=== PATIENT | female | born 1935 | race Caucasian/White ===

== ENCOUNTER 2022-03-09 10:29 | Inpatient (IN) ==
[2022-03-09] MEDS ORDERED: IOPAMIDOL 100 ML BOTTLE IV ONE (10:30)
[2022-03-09] MEDS ORDERED: 0.9 % SODIUM CHLORIDE 1,000 ML IV ONE (10:42)
[2022-03-09] MEDS ORDERED: ONDANSETRON 4 MG/2 ML VIAL IV ONE (10:50)
[2022-03-09] MEDS ORDERED: morphine 4 MG/ML VIAL IV ONE (10:50)
--- NOTE | 2022-03-09 10:52 | Emergency Department Note ---
HPI General Chief complaint: Abdominal Pain Stated complaint: stomach pain Time Seen by Provider: 03/09/22 10:50 Source: patient and family Mode of arrival: wheelchair Limitations: no limitations History of Present Illness HPI Narrative: Narrative: Patient is an 86-year-old female with a history of dementia, but without otherwise known history who presents to the emergency department due to abdominal pain. The patient states that she has pain in her entire abdomen, but it is worst in the right lower portion of the abdomen. She states that the pain is very severe, and is having difficulty answering other questions at this time. Patient's states that the pain started this morning while at [employer]. 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 He states that she has tenderness at McBurney's point. Patient's daughter states that she has had multiple emergency department visits in the past for abdominal pain, but nothing had been found in the past. They deny any other known concerns at this time. Related Data Allergies Allergy/AdvReac Type Severity Reaction Status Date / Time No Known Drug Allergies Allergy Unverified 03/09/22 10:45 Review of Systems ROS ROS Narrative: Narrative: Limitations: ROS unobtainable due to patients medical condition [facility] Narrative Patient History Narrative: Narrative: Medical/Surgical/Family History All Active Problems (Updated 03/09/22 @ 19:04 by Edmund Grant MD) Pneumoperitoneum (Acute) Acute generalized peritonitis (Acute) Perforated abdominal viscus (Acute) Medical History (Updated 03/09/22 @ 19:04 by Edmund Grant MD) Degenerative disc disease Loose total arthroplasty of both knees Osteoarthritis Surgical History (Updated 03/09/22 @ 15:11 by Micky Johnson MD) History of arthroplasty of right shoulder History of total right hip arthroplasty Social History Smoking Status: Never smoker Exam Narrative Narrative: Narrative: General Limitations: no limitations General appearance: Present alert and in no apparent distress; Absent anxious or appears intoxicated Head Head: Present atraumatic and normocephalic Eye Eye: Present PERRL, EOMI and visual bowles intact; Absent scleral icterus or nystagmus ENT ENT: Present mucous membranes moist; Absent nasal congestion Neck Neck: Present full ROM; Absent tenderness Chest Chest: Present normal inspection, symmetric chest wall rise and tenderness Respiratory Respiratory: Present normal lung sounds bilaterally; Absent respiratory distress or accessory muscle use Cardiovascular Cardiovascular: Present regular rate, normal rhythm and normal heart sounds Adbominal Abdominal: Present soft and normal bowel sounds; Absent distention or tenderness Extremities Extremities: Present normal inspection and full ROM; Absent tenderness Back Back: Present normal inspection and full ROM; Absent tenderness Neurological Neurological: Present alert, oriented X3, CN II-XII intact, normal gait and reflexes normal; Absent motor sensory deficit Psychiatric Psychiatric: Present normal affect and normal mood Skin Skin: Present warm (WNL), dry and normal color Course Vital Signs Vital signs: Vital Signs Temperature 99.1 F H 03/09/22 10:36 Pulse Rate 123 H 03/09/22 10:36 Respiratory Rate 22 03/09/22 10:36 Blood Pressure 183/120 03/09/22 10:36 Pulse Oximetry (%) 98 03/09/22 10:36 Oxygen Delivery Method 03/09/22 10:36 Temperature 97.8 F 03/09/22 18:38 Pulse Rate 88 03/09/22 18:38 Respiratory Rate 18 03/09/22 18:38 Blood Pressure 115/66 03/09/22 18:35 Pulse Oximetry (%) 95 03/09/22 18:38 Oxygen Delivery Method 03/09/22 14:47 Oxygen Flow Rate (L/min) 0 03/09/22 18:38 MDM MDM Narrative Medical decision making narrative: Narrative: Patient is an 86-year-old female with a history of dementia, but without otherwise known history who presents to the emergency department due to abdominal pain. Differential diagnoses include pancreatitis, small bowel obstruction, appendicitis, urinary tract infection, gastritis, and peptic ulcer disease. Patient's labs are reassuring. CT scan is significant for pneumoperitoneum. I have spoken to Dr. Johnson who has agreed to see and evaluate patient for surgical exploration. Lab Data Result diagrams: 03/09/22 10:57 Labs: Lab Results 03/09/22 03/09/22 03/09/22 Range/Units 10:51 10:51 10:57 WBC 11.0 (4.5-11.0) K/mcL RBC 3.77 (3.59-5.38) M/mcL Hgb 11.9 (11.2-15.7) g/dL Hct 35.4 (34.1-44.9) % POC Hct (36-48) MCV 93.9 (80.0-100.0) fL MCH 31.6 (26.0-34.0) pg MCHC 33.6 (31.0-36.0) g/dL RDW 13.9 (11.5-14.5) % Plt Count 403 (140-440) K/mcL MPV 10.0 (7.4-10.4) fL Immature Gran % (Auto) 0.5 (0.0-0.5) % Neut % (Auto) 70.5 (38.0-78.0) % Lymph % (Auto) 19.9 (15.5-49.0) % [place] % (Auto) 7.9 (1.0-12.0) % Eos % (Auto) 0.9 (0.0-7.0) % Baso % (Auto) 0.3 (0.0-2.0) % Lymph # (Auto) 2.19 (1.50-4.80) K/mcL [place] # (Auto) 0.87 (0.10-0.90) K/mcL Eos # (Auto) 0.10 (0.00-0.70) K/mcL Baso # (Auto) 0.03 (0.00-0.30) K/mcL Immature Gran # 0.05 (0.00-0.05) K/mcl Absolute Neutrophils 7.77 (1.80-8.00) K/mcL PT 12.7 (11.9-14.5) sec INR 0.9 (0.9-1.1) APTT 27.5 (20.0-37.0) sec POC Sodium (133-145) POC Potassium (3.3-5.1) POC Chloride (96-108) POC Total CO2 (22-30) POC BUN (6-20) POC Creatinine (0.6-1.2) POC Glucose (70-105) POC WB Ioniz Calcium (1.16-1.32) Total Bilirubin 0.5 (0.1-1.0) mg/dL Direct Bilirubin < 0.2 (0-0.3) mg/dL AST 20 (<32) U/L ALT 18 (<40) U/L Alkaline Phosphatase 111 (39-117) U/L Total Protein 6.4 (5.9-8.4) gm/dL Albumin 3.8 (3.2-5.2) gm/dL Globulin 2.6 (2.2-3.7) gm/dL Lipase 48 (7-60) U/L 03/09/22 Range/Units 12:18 WBC (4.5-11.0) K/mcL RBC (3.59-5.38) M/mcL Hgb (11.2-15.7) g/dL Hct (34.1-44.9) % POC Hct 30.0 L (36-48) MCV (80.0-100.0) fL MCH (26.0-34.0) pg MCHC (31.0-36.0) g/dL RDW (11.5-14.5) % Plt Count (140-440) K/mcL MPV (7.4-10.4) fL Immature Gran % (Auto) (0.0-0.5) % Neut % (Auto) (38.0-78.0) % Lymph % (Auto) (15.5-49.0) % [place] % (Auto) (1.0-12.0) % Eos % (Auto) (0.0-7.0) % Baso % (Auto) (0.0-2.0) % Lymph # (Auto) (1.50-4.80) K/mcL [place] # (Auto) (0.10-0.90) K/mcL Eos # (Auto) (0.00-0.70) K/mcL Baso # (Auto) (0.00-0.30) K/mcL Immature Gran # (0.00-0.05) K/mcl Absolute Neutrophils (1.80-8.00) K/mcL PT (11.9-14.5) sec INR (0.9-1.1) APTT (20.0-37.0) sec POC Sodium 139 (133-145) POC Potassium 3.5 (3.3-5.1) POC Chloride 110 H (96-108) POC Total CO2 21.0 L (22-30) POC BUN 24 H (6-20) POC Creatinine 0.9 (0.6-1.2) POC Glucose 110 H (70-105) POC WB Ioniz Calcium 1.03 L (1.16-1.32) Total Bilirubin (0.1-1.0) mg/dL Direct Bilirubin (0-0.3) mg/dL AST (<32) U/L ALT (<40) U/L Alkaline Phosphatase (39-117) U/L Total Protein (5.9-8.4) gm/dL Albumin (3.2-5.2) gm/dL Globulin (2.2-3.7) gm/dL Lipase (7-60) U/L EKG Data EKG #1: EKG attestation: Yes I reviewed and interpreted this EKG. EKG results narrative: Sinus tachycardia with a rate of 109, equivocal axis, KS of 184, QRS of 82, QTc of 467, T wave flattening in lead III and aVL, and absence of ST elevation or depression. Discharge Plan Patient/Caregiver Discharge Instructions Pt seen by CLINICAL DATA MANAGEMENT MANAGER/PA only: No Clinical Impression: Pneumoperitoneum Patient Disposition: Xfer As Inpt ([facility]) Discharge Date/Time: 03/09/22 14:20 Discharge Comment: Dc'd to Med/Surg 112 @ [id number]
[2022-03-09 11:32] LABS: Basophils # (Auto) 0.03 K/mcL (0.00-0.30); Basophils % (Auto) 0.3 % (0.0-2.0); Eosinophils % (Auto) 0.9 % (0.0-7.0); Hematocrit 35.4 % (34.1-44.9); Hemoglobin 11.9 g/dL (11.2-15.7); Lymphocytes # (Auto) 2.19 K/mcL (1.50-4.80); Lymphocytes % (Auto) 19.9 % (15.5-49.0); Mean Cell Volume 93.9 fL (80.0-100.0); Mean Corpuscular HGB Conc 33.6 g/dL (31.0-36.0); Monocytes # (Auto) 0.87 K/mcL (0.10-0.90); Monocytes % (Auto) 7.9 % (1.0-12.0); Neutrophils % (Auto) 70.5 % (38.0-78.0); Platelet Count 403 K/mcL (140-440); RBC 3.77 M/mcL (3.59-5.38); Red Cell Distribution Width 13.9 % (11.5-14.5)
[2022-03-09] MEDS ORDERED: 0.9 % SODIUM CHLORIDE 500 ML IV ONE (11:37)
[2022-03-09] MEDS ORDERED: IPRATROPIUM/ALBUTEROL 3 ML AMPUL.NEB NEB ONE (11:41)
[2022-03-09 11:55] LABS: ALT/SGPT 18 U/L (<40); AST/SGOT 20 U/L (<32); Albumin 3.8 gm/dL (3.2-5.2); Alkaline Phosphatase 111 U/L (39-117); Bilirubin,Direct < 0.2 mg/dL (0-0.3); Bilirubin,Total 0.5 mg/dL (0.1-1.0); Globulin 2.6 gm/dL (2.2-3.7)
[2022-03-09] MEDS ORDERED: PIPERACILLIN SODIUM/TAZOBACTAM 3.375 GM in DEXTROSE 5% IN WATER 50 ML IV ONE (12:17)
[2022-03-09 12:22] LABS: POC Calcium, Ionized 1.03 (1.16-1.32); POC Creatinine 0.9 (0.6-1.2); POC Potassium 3.5 (3.3-5.1)
[2022-03-09 12:51] LABS: INR 0.9 (0.9-1.1); Partial Thromboplastin Time 27.5 sec (20.0-37.0); Prothrombin Time 12.7 sec (11.9-14.5)
[2022-03-09] MEDS: PANTOPRAZOLE 40 MG VIAL IV SCH ×2 (13:05→16:47)
--- NOTE | 2022-03-09 13:13 | XRay Report ---
CLINICAL INFORMATION: Preop COMPARISON: 02/19/2022 TECHNIQUE: Portable FINDINGS: Moderate hiatal hernia again noted. The heart is borderline enlarged. Mediastinum is unremarkable. There is mild distention of the pulmonary vasculature and mild interstitial edema both lungs. No infiltrates or effusions. Small amount of free air is noted under the right diaphragm. IMPRESSION: Mild CHF or volume overload. Small amount of free air under the right diaphragm suggesting GI tract rupture Severe right glenohumeral degeneration Interpreted and Authenticated by: Ethan Maravilla 03/09/22
--- NOTE | 2022-03-09 13:31 | Cat Scan Report ---
CLINICAL INFORMATION: Right lower quadrant pain COMPARISON: Abdomen and pelvic CT 12/20/2020 and 02/16/2022 TECHNIQUE: Following enteric contrast, 80 cc of Isovue-370 were injected intravenously, and 60 seconds later, 0.625 mm helical slices were obtained from the mid heart through the subtrochanteric regions. Following reconstruction, 2.5 mm sagittal, coronal and axial reformatted images were processed and reviewed at bone, lung and soft tissue windows. Five minutes later, 0.625 mm helical slices were obtained from the mid heart through the kidneys and viewed at soft tissue windows.The exam was performed using radiation dose optimization techniques including, but not limited to, automated exposure control, adjustment of the mA and/or kV according to patient size and use of iterative reconstruction technique. FINDINGS: The lung bases show subsegmental atelectasis. No effusions. The visualized heart is grossly normal in size. Heavy calcific plaque seen in the visualized coronary arteries. Moderate hiatal hernia is stable. Abdominal images show mild fatty change in the liver with a 6 mm cyst superior right hepatic lobe. No significant focal hepatic lesions. The gallbladder, intrahepatic and common bile ducts are all unremarkable. The CBD is 6 mm. The pancreas, both adrenal glands, spleen and aorta including aortic branches are normal in size, configuration and attenuation without focal lesion. There is a 8 mm nonobstructing stone within a inferior calyx of the left kidney. There is no obstructing stone. There is, however, mild left pyelocaliectasis may be due to mild congenital UPJ narrowing. Pelvic images show urinary bladder is unremarkable. Uterus and ovaries are not identified and may be surgically absent. The stomach, small large bowel are symmetrically dilated compatible with moderate ileus. Moderate free intraperitoneal fluid and air is seen in the upper abdomen. This suggests GI tract rupture-likely stomach or duodenum. Bone windows show moderate old T12 compression fracture which is stable. Grade 1 L3-4 spondylolisthesis due to degenerative facet disease noted is broad disc protrusion resulting in moderate central canal narrowing. IMPRESSION: 1. Moderate free intraperitoneal fluid and gas in the upper abdomen particularly the anterior perihepatic, para splenic and gastric region. This suggest GI tract rupture most commonly, in this location, due to peptic ulcer in the stomach or anterior duodenum. 2. Moderate ileus. 3. Moderate hiatal hernia stable 4. 8 mm nonobstructing stone inferior calyx left kidney. Mild pyelocaliectasis may be due to mild congenital UPJ narrowing. Interpreted and Authenticated by: Ethan Maravilla 03/09/22
[2022-03-09] MEDS: 0.9 % SODIUM CHLORIDE 1,000 ML IV SCH ×2 (13:32→18:37)
--- NOTE | 2022-03-09 15:06 | General Surg History&Physical ---
HPI History of Present Illness Patient information: Note initiated : 03/09/22 at 3:04 pm Service Date, if different from initiated Date: [] Patient: Heather Jasmine a 86 y/o F admitted on 03/09/22 for stomach pain. Chief Complaint: [] Chief complaint: Severe upper abdominal pain History of present illness: Ms. Jasmine is a 86 year old F with history of upper abdominal pain for at least 2weeks. She was seen in the emergency room and colon x2 in the past week without any abnormal findings. She had acute severe onset of pain 3 days ago. The pain became unbearable earlier today and she was seen in the emergency room. She appeared to be in severe distress but her vitals were stable except for tachycardia. CT of the abdomen shows large volume of free air primarily in the right upper quadrant in the subphrenic and subhepatic area. There is a small amount of air in the right subphrenic area. Patient gives a history of taking Celebrex daily over the past 10 years and she started taking Aleve when she had worsening pain. She denies nausea or vomiting. Her white blood count is 11 and her hemoglobin is 11.9. BUN is 24 with creatinine of 0.9. Review of Systems All systems: reviewed and no additional remarkable complaints except as stated Constitutional Constitutional: Present fatigue, malaise and weakness Respiratory Respiratory: Present cough Gastrointestinal Gastrointestinal: Present abdominal pain, change in bowel habits, change in stool character, constipation (Required Dulcolax suppositories), dyspepsia and nausea; Absent vomiting Musculoskeletal Musculoskeletal: Present abnormal gait, arthralgias, back pain and myalgias Psychiatric Psychiatric: Present behavioral changes and memory loss Hematologic/Lymphatic Hematologic/Lymphatic: Absent easy bleeding, easy bruising or lymphadenopathy Allergic/Immunologic Allergic/Immunologic: Absent tongue swelling, throat swelling, uticaria, wheezing or lip swelling PFSH PFSH All Active Problems (Updated 03/09/22 @ 15:15 by Micky Johnson MD) Acute generalized peritonitis (Acute) Perforated abdominal viscus (Acute) Medical History (Updated 03/09/22 @ 15:15 by Micky Johnson MD) Degenerative disc disease Loose total arthroplasty of both knees Osteoarthritis Surgical History (Updated 03/09/22 @ 15:11 by Micky Johnson MD) History of arthroplasty of right shoulder History of total right hip arthroplasty Social History (Updated 03/09/22 @ 15:12 by Micky Johnson MD) household members: spouse housing: assisted living facility lives independently: No marital status: occupational status: previously employed smoking status: Never smoker alcohol intake frequency: 0-2 drinks per day substance use type: does not use MEDS/ALLERGIES Home Medications and Allergies Allergies Allergy/AdvReac Type Severity Reaction Status Date / Time No Known Drug Allergies Allergy Unverified 03/09/22 10:45 Physical Examination Vital Signs Vital signs: Temp Pulse Resp BP Pulse Ox O2 Del Method 97.8 F 92 H 16 133/64 96 03/09/22 14:47 03/09/22 14:47 03/09/22 14:47 03/09/22 14:47 03/09/22 14:47 03/09/22 14:47 General physical appearance General physical exam: moderate distress, severe pain, cachectic and chronically ill Eyes Eye exam: PERRL and normal ocular movement ENT ENT exam: normal mucosa and decreased hearing Head Head exam IM: Present atraumatic, normal inspection and normocephalic Neck Neck exam: no masses, no bruits, trachea midline, no lymphadenopathy and no venous distension Cardiovascular Cardiovascular exam IM: Present RRR, +S1, +S2 and tachycardia (110-120); Absent JVD Respiratory Respiratory exam: normal expansion, normal respiratory effort and clear to auscultation Abdomen Abdomen: Present tender, bowel sounds (Hypoactive bowel sounds), guarding and rebound Integumentary Integumentary: Present no rash, no growths, no abnormal pigmentation and other Neurologic Neurologic: Present normal coordination, normal sensation and memory loss Musculoskeletal Musculoskeletal: Present normal gait and normal posture Psychiatric Psychiatric: Present oriented to time, oriented to person, speech is normal and other; Absent oriented to place or memory intact Results Labs Result diagrams: 03/09/22 10:57 Labs: Abnormal lab results 03/09/22 Range/Units 12:18 POC Hct 30.0 L (36-48) POC Chloride 110 H (96-108) POC Total CO2 21.0 L (22-30) POC BUN 24 H (6-20) POC Glucose 110 H (70-105) POC WB Ioniz Calcium 1.03 L (1.16-1.32) Diabetes panel 03/09/22 Range/Units 10:51 AST 20 (<32) U/L ALT 18 (<40) U/L Alkaline Phosphatase 111 (39-117) U/L Total Protein 6.4 (5.9-8.4) gm/dL Albumin 3.8 (3.2-5.2) gm/dL Calcium panel 03/09/22 Range/Units 10:51 Albumin 3.8 (3.2-5.2) gm/dL Adrenal panel 03/09/22 Range/Units 10:51 Total Bilirubin 0.5 (0.1-1.0) mg/dL AST 20 (<32) U/L ALT 18 (<40) U/L Alkaline Phosphatase 111 (39-117) U/L Total Protein 6.4 (5.9-8.4) gm/dL Albumin 3.8 (3.2-5.2) gm/dL All other labs normal. A/P Assessment and plan (1) Perforated abdominal viscus: Status: Acute (2) Acute generalized peritonitis: Status: Acute Plan Zosyn 3.375 g IV every 6 hours Pantoprazole 40 mg IV twice daily Emergency laparotomy with probable closure of gastric ulcer and peritoneal washout and drainage Time Spent With Patient Time: Total time spent is greater than 50% in coordination of care (as documented) at patient's floor/unit and/or counseling patient:
[2022-03-09] MEDS ORDERED: ALBUMIN HUMAN 25 GM/100 ML BAG IV ONE ×2 (15:32→16:04)
[2022-03-09] MEDS ORDERED: LIDOCAINE HCL/PF 100 MG/5 ML SYRINGE IV ONE (16:04)
[2022-03-09] MEDS ORDERED: SUCCINYLCHOLINE 20 MG/ML ML IV ONE (16:04)
[2022-03-09] MEDS ORDERED: fentaNYL 100 MCG/2 ML VIAL IV ONE (16:04)
[2022-03-09] MEDS ORDERED: ROCURONIUM 10 MG/ML ML IV ONE (16:04)
[2022-03-09] MEDS ORDERED: MAGNESIUM SULFATE 2 GM/50 ML BAG IV ONE (16:04)
[2022-03-09] MEDS ORDERED: DEXAMETHASONE 10 MG/ML VIAL ONE (16:04)
[2022-03-09] MEDS ORDERED: ONDANSETRON 4 MG/2 ML VIAL ONE (16:04)
[2022-03-09] MEDS ORDERED: BUPIVACAINE 0.25% 50 ML VIAL IJ ONE (16:04)
[2022-03-09] MEDS ORDERED: GLYCOPYRROLATE 0.2 MG/ML VIAL IV ONE (16:04)
[2022-03-09] MEDS ORDERED: PROPOFOL 200 MG/20 ML VIAL IV ONE (16:04)
[2022-03-09] MEDS ORDERED: ePHEDrine 50 MG/5 ML SYRINGE (ANEST) IV ONE (16:04)
[2022-03-09] MEDS ORDERED: KETAMINE 50 MG/ML Syringe (ANEST) IV ONE (16:04)
[2022-03-09] MEDS ORDERED: HYDROmorphone 0.5 MG/0.5 ML SYRINGE IV PRN (17:07)
[2022-03-09] MEDS ORDERED: ONDANSETRON 4 MG/2 ML VIAL IV PRN ×2 (17:07→17:27)
[2022-03-09] MEDS ORDERED: METOPROLOL TARTRATE 5 MG/5 ML VIAL IV PRN (17:07)
[2022-03-09] MEDS ORDERED: ACETAMINOPHEN 1,000 MG/100 ML BAG IV ONE ×2 (17:07→17:45)
[2022-03-09] MEDS ORDERED: PROMETHAZINE 25 MG/ML VIAL IV PRN (17:07)
[2022-03-09] MEDS ORDERED: fentaNYL 100 MCG/2 ML VIAL IV PRN (17:07)
[2022-03-09] MEDS ORDERED: NALOXONE HCL 0.4 MG/ML VIAL IV PRN (17:07)
[2022-03-09] MEDS ORDERED: LACTATED RINGERS 250 ML IV PRN (17:07)
[2022-03-09] MEDS ORDERED: MEPERIDINE 25 MG/ML VIAL IV PRN (17:07)
[2022-03-09] MEDS ORDERED: IPRATROPIUM/ALBUTEROL 3 ML AMPUL.NEB NEB PRN (17:07)
[2022-03-09] MEDS ORDERED: LABETALOL 5 MG/ML ML IV PRN (17:07)
[2022-03-09] MEDS ORDERED: LACTATED RINGERS 1,000 ML IV SCH (17:15)
--- NOTE | 2022-03-09 17:18 | Brief Operative Note ---
Brief Operative Note Date of procedure: 03/09/22 Pre-op diagnosis: perforated viscuswith peritonitis Post-op diagnosis: other (perforated gastric ulcer with peritonitis) Procedure: laparotomy with peritoneal washout and carrie patch closure Grafts/Implants: No (#10 edson drain) Anesthesia: GETA Findings: perforation of distal antrum along lesser curvature with large volume gastroduodenal contents and peritonitis Complications: none Surgeon: Micky Johnson Estimated blood loss (cc): 10 Specimens Removed/Pathology: other (cultures of peritoneal fluid) Condition: stable Disposition: PACU
[2022-03-09] MEDS: PIPERACILLIN SODIUM/TAZOBACTAM 2.25 GM in DEXTROSE 5% IN WATER 50 ML IV SCH (20:08)
[2022-03-09] MEDS: MUPIROCIN OINT 2% 22GM NARES SCH (22:27)
[2022-03-10] MEDS ORDERED: ACETAMINOPHEN 800 MG/80 ML BAG IV SCH
[2022-03-10] MEDS: PIPERACILLIN SODIUM/TAZOBACTAM 2.25 GM in DEXTROSE 5% IN WATER 50 ML IV SCH ×4 (01:00→17:27)
[2022-03-10] MEDS: HYDROmorphone 0.5 MG/0.5 ML SYRINGE IV PRN ×3 (02:48→17:10)
[2022-03-10] MEDS: 0.9 % SODIUM CHLORIDE 1,000 ML IV SCH ×3 (03:33→14:49)
[2022-03-10 05:51] LABS: Basophils # (Auto) 0.01 K/mcL (0.00-0.30); Basophils % (Auto) 0.1 % (0.0-2.0); Eosinophils # (Auto) 0 K/mcL (0.00-0.70); Eosinophils % (Auto) 0 % (0.0-7.0); Hematocrit 28.5 % (34.1-44.9); Hemoglobin 9.1 g/dL (11.2-15.7); Lymphocytes # (Auto) 0.43 K/mcL (1.50-4.80); Lymphocytes % (Auto) 6.2 % (15.5-49.0); Mean Cell Volume 97.6 fL (80.0-100.0); Mean Corpuscular HGB Conc 31.9 g/dL (31.0-36.0); Mean Platelet Volume 9.3 fL (7.4-10.4); Monocytes # (Auto) 0.39 K/mcL (0.10-0.90); Monocytes % (Auto) 5.6 % (1.0-12.0); Platelet Count 219 K/mcL (140-440); RBC 2.92 M/mcL (3.59-5.38); Red Cell Distribution Width 14.3 % (11.5-14.5); WBC 6.9 K/mcL (4.5-11.0)
[2022-03-10 06:20] LABS: ALT/SGPT 11 U/L (<40); AST/SGOT 15 U/L (<32); Albumin 3.1 gm/dL (3.2-5.2); Albumin/Globulin Ratio 1.8 (1.0-2.3); Alkaline Phosphatase 53 U/L (39-117); Bilirubin,Direct < 0.2 mg/dL (0-0.3); Bilirubin,Total 0.5 mg/dL (0.1-1.0); Blood Urea Nitrogen 18 mg/dL (8-23); Calcium 7.6 mg/dL (8.6-10.4); Carbon Dioxide 22 mmol/L (22-30); Chloride 112 mmol/L (96-108); Globulin 1.7 gm/dL (2.2-3.7); Glomerular Filtration Rate 81; Glucose 137 mg/dL (70-105); Lactate Dehydrogenase 197 U/L (135-225); Phosphorous 3.1 mg/dL (2.5-4.5); Triglycerides 38 mg/dL (<150); Uric Acid 1.9 mg/dL (2.5-8.0)
[2022-03-10] MEDS: PANTOPRAZOLE 40 MG VIAL IV SCH ×2 (08:02→17:27)
--- NOTE | 2022-03-10 08:13 | EKG ---
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 Measurements Intervals [place] Rate: 109 P: 1 UT: 184 QRS: -3 QRSD: 82 T: 36 QT: 346 QTc: 467 Interpretive Statements Sinus tachycardia Electronically Signed On 03-10-2022 8:13:38 PDT by Ethan Shearer M.D. /[email or web address]/[email or web address]/[id number]
[2022-03-10] MEDS: MUPIROCIN OINT 2% 22GM NARES SCH ×2 (11:53→19:30)
--- NOTE | 2022-03-10 13:37 | General Surgery Progress Note ---
SUBJECTIVE Subjective Patient information: Note initiated : 03/10/22 at 1:33 pm Service Date, if different from initiated Date: [] Patient: Heather Jasmine 86 y/o F admitted on 03/09/22 for stomach pain. Chief Complaint: [] Principal diagnosis: Perforated viscus Interval history: Patient is status post primary closure of perforated gastric ulcer with Pete patch. Clinically she is stable and she is afebrile. She has large volume of serous fluid but no bilious fluid is noted. Oxygen saturation is 96% on room air. She has no respiratory difficulty. She complains of mild incisional discomfort. White blood count 6.9, hemoglobin 9.1, potassium 4.1, BUN 18, creatinine 0.6. Constitutional Vitals: Vital Signs Temp Pulse Resp BP Pulse Ox O2 Del Method O2 Flow Rate 97.3 F 100 H 14 138/79 96 0 03/10/22 12:00 03/10/22 12:00 03/10/22 12:00 03/10/22 12:00 03/10/22 12:00 03/10/22 12:00 03/09/22 18:38 Period Temp Pulse Resp BP Sys/[place] Pulse Ox O2 Del Method O2 Flow Rate Last 24 Hr 97 F-98.2 F 84-100 10-95 95-138/57-93 94-100 Room Air-Room Air 0-6 Intake and Output 03/09/22 03/10/22 03/10/22 21:59 05:59 13:59 Intake Total 2300 1130 1050 Output Total 1000 1240 Balance 1300 -110 1050 Weight 131 lb 11.2 oz Intake & Output: Intake & Output 03/09/22 03/10/22 03/10/22 21:59 05:59 13:59 Intake Total 2300 1130 1050 Output Total 1000 1240 Balance 1300 -110 1050 Weight 131 lb 11.2 oz Intake: IV 1200 1130 1050 Sodium Chloride 0.9% 1,000 ml @ 1000 1000 1000 150 mls/hr IV .[id number] MAX Rx#: [id number] Zosyn 2.25 gm In Dextrose 5% in 50 50 50 Water 50 ml @ 100 mls/hr IV Q6H MAX Rx#:[id number] Zosyn 3.375 gm In Dextrose 5% 50 in Water 50 ml @ 100 mls/hr IV ONCE ONE Rx#:[id number] Albumin 200 IV - Manual Only 900 Output: Gastric Drainage 215 NG/OG 215 Drainage 100 Right Abdomen 100 Urine Catheter Amount 850 800 Void Amount 225 Estimated Blood Loss 50 Other: Urine Appearance Clear Clear Uretheral ([place]) Clear Clear Urine Color Yellow Bright Yellow Uretheral ([place]) Bright Yellow Dark Yellow Urine Odor Normal Normal Eye Eye exam: Present EOMI and PERRL Pupils: Present normal accommodation ENT ENT exam: Present mucous membranes moist, normal exam and normal oropharynx Neck Neck exam: Present full ROM and normal inspection Respiratory Respiratory exam: Present normal respiratory exam; Absent CTAB, rales or wheezes Cardiovascular Cardiovascular exam: Present normal rate and rhythm, RRR (Heart rate 100), +S1 and +S2 GI/Abdominal GI/Abdominal exam: Present normal bowel sounds and tenderness (Mild incisional tenderness); Absent distended Extremities Exam Extremities exam: Present neurovascular intact; Absent pedal edema Neurological Exam Neurological exam: Present oriented X3 (Patient is oriented to person and place; she does not remember having surgery) Psychiatric Psychiatric exam: Present depressed and flat affect A/P Assessment and plan (1) Perforated gastric ulcer: Status: Acute (2) Acute generalized peritonitis: Status: Acute (3) Pneumoperitoneum: Status: Acute (4) Primary degenerative dementia: Status: Acute Plan Patient will be continued on present medication regimen IV will be discontinued to 75 cc/h proBNP will be checked Chest x-ray to be checked in the morning Time Spent With Patient Time: Total time spent is greater than 50% in coordination of care (as documented) at patient's floor/unit and/or counseling patient:
[2022-03-10] MEDS ORDERED: BENZOCAINE 1 SPRAY BOTTLE TOPICAL ONE (14:20)
[2022-03-10] MEDS ORDERED: BENZOCAINE 20% TOPICAL ONE (15:00)
--- NOTE | 2022-03-10 15:33 | XRay Report ---
INDICATION: NG tube placement TECHNIQUE: Supine abdomen. COMPARISON: None FINDINGS:There is an esophagogastric tube with its tip in the body of the stomach. There is a surgical drain in the upper abdomen. There are multiple skin pablo and a vertical midline incision. IMPRESSION: Esophagogastric tube in the stomach Interpreted and Authenticated by: Ethan Brown 03/10/22
[2022-03-10] MEDS: LATANOPROST OPHTH DROPS 2.5ML BOTTLE OU SCH (19:30)
[2022-03-10] MEDS: diphenhydrAMINE 50 MG/ML VIAL IV PRN (19:30)
[2022-03-10] MEDS: HALOPERIDOL LACTATE 5 MG/ML VIAL IM SCH (22:14)
[2022-03-11] MEDS: PIPERACILLIN SODIUM/TAZOBACTAM 2.25 GM in DEXTROSE 5% IN WATER 50 ML IV SCH ×5 (00:19→17:44)
[2022-03-11 06:48] LABS: Basophils # (Auto) 0.01 K/mcL (0.00-0.30); Basophils % (Auto) 0.1 % (0.0-2.0); Eosinophils # (Auto) 0.09 K/mcL (0.00-0.70); Eosinophils % (Auto) 1.1 % (0.0-7.0); Hematocrit 27.6 % (34.1-44.9); Hemoglobin 8.7 g/dL (11.2-15.7); Lymphocytes # (Auto) 0.83 K/mcL (1.50-4.80); Lymphocytes % (Auto) 10.2 % (15.5-49.0); Mean Cell Volume 97.9 fL (80.0-100.0); Mean Corpuscular HGB Conc 31.5 g/dL (31.0-36.0); Mean Platelet Volume 9.6 fL (7.4-10.4); Monocytes # (Auto) 0.43 K/mcL (0.10-0.90); Monocytes % (Auto) 5.3 % (1.0-12.0); Neutrophils % (Auto) 82.7 % (38.0-78.0); Platelet Count 216 K/mcL (140-440); RBC 2.82 M/mcL (3.59-5.38); Red Cell Distribution Width 14.6 % (11.5-14.5); WBC 8.1 K/mcL (4.5-11.0)
--- NOTE | 2022-03-11 06:54 | XRay Report ---
INDICATION: Pulmonary congestion TECHNIQUE: AP portable semiupright chest x-ray COMPARISON: Previous chest x-ray dated 03/09/2022 FINDINGS:There is an esophagogastric tube with its tip off the plane of this chest x-ray. Lungs:No pulmonary parenchymal consolidation. Densities at the left lung base are most consistent with atelectasis. No parenchymal consolidation. Heart, vascular:No significant cardiomegaly. Pulmonary vascularity is normal. No pulmonary edema or pulmonary congestion Mediastinum, imelda:No mediastinal widening. No hilar mass Pleura:There is a lucency in the lateral aspects of the right hemithorax. This may be artifactual but a small right pneumothorax is possible. No detectable apical pneumothorax. Follow-up chest x-ray and upper right position is recommended. Expiratory view may be of benefit. Skeletal:Previous left shoulder arthroplasty. Severe degenerative disease in the right shoulder IMPRESSION: 1. Small lucency in the right hemithorax may be artifactual but a small right pneumothorax is possible. Follow-up upright portable chest x-ray in expiration recommended 2. Mild left basilar atelectasis. No parenchymal consolidation Interpreted and Authenticated by: Ethan Brown 03/11/22
[2022-03-11 07:21] LABS: ALT/SGPT 11 U/L (<40); AST/SGOT 17 U/L (<32); Albumin 2.9 gm/dL (3.2-5.2); Albumin/Globulin Ratio 1.5 (1.0-2.3); Alkaline Phosphatase 63 U/L (39-117); Bilirubin,Direct < 0.2 mg/dL (0-0.3); Bilirubin,Total 0.4 mg/dL (0.1-1.0); Blood Urea Nitrogen 17 mg/dL (8-23); Calcium 8.3 mg/dL (8.6-10.4); Carbon Dioxide 21 mmol/L (22-30); Chloride 116 mmol/L (96-108); Glomerular Filtration Rate 81; Glucose 84 mg/dL (70-105); Lactate Dehydrogenase 181 U/L (135-225); Phosphorous 1.5 mg/dL (2.5-4.5); Triglycerides 59 mg/dL (<150); Uric Acid 1.7 mg/dL (2.5-8.0)
[2022-03-11] MEDS: PANTOPRAZOLE 40 MG VIAL IV SCH ×2 (07:40→16:59)
[2022-03-11] MEDS: HYDROmorphone 0.5 MG/0.5 ML SYRINGE IV PRN (07:47)
[2022-03-11] MEDS: MUPIROCIN OINT 2% 22GM NARES SCH ×2 (08:28→21:30)
[2022-03-11] MEDS: ACETAMINOPHEN 1,000 MG/100 ML BAG IV SCH ×3 (11:37→21:26)
[2022-03-11] MEDS: 0.9 % SODIUM CHLORIDE 1,000 ML IV SCH ×2 (11:39→17:33)
--- NOTE | 2022-03-11 18:04 | General Surgery Progress Note ---
SUBJECTIVE Subjective Patient information: Note initiated : 03/11/22 at 5:59 pm Service Date, if different from initiated Date: [] Patient: Heather Jasmine 86 y/o F admitted on 03/09/22 for stomach pain. Chief Complaint: [] Principal diagnosis: Perforated viscus Interval history: Patient is stable except for mental status. She is disoriented to person place and time and has periods of hallucination. She cannot remember even short-term occurrences. Vital signs are stable and she is afebrile. White blood count 8.1, hemoglobin 8.7, hematocrit 27.6, BUN 17, creatinine 0.6, phosphorus 1.5, potassium 3.5. Constitutional Vitals: Vital Signs Temp Pulse Resp BP Pulse Ox O2 Del Method O2 Flow Rate 97.7 F 81 16 143/70 95 0 03/11/22 16:00 03/11/22 16:00 03/11/22 16:00 03/11/22 16:00 03/11/22 16:00 03/11/22 16:00 03/09/22 18:38 Period Temp Pulse Resp BP Sys/[place] Pulse Ox O2 Del Method O2 Flow Rate Last 24 Hr 97.4 F-100.1 F 76-108 13-16 115-169/61-73 92-97 Room Air-Room Air Intake and Output 03/11/22 03/11/22 03/11/22 05:59 13:59 21:59 Intake Total 1050 230 130 Output Total 500 60 695 Balance 550 170 -565 Intake & Output: Intake & Output 03/11/22 03/11/22 03/11/22 05:59 13:59 21:59 Intake Total 1050 230 130 Output Total 500 60 695 Balance 550 170 -565 Intake: IV 1050 200 100 Sodium Chloride 0.9% 1,000 ml @ 1000 75 mls/hr IV .[id number] MAX Rx#: [id number] Zosyn 2.25 gm In Dextrose 5% in 50 100 Water 50 ml @ 100 mls/hr IV Q6H MAX Rx#:[id number] Oral 0 30 30 Output: Gastric Drainage 110 300 NG/OG 110 300 Drainage 30 Right Abdomen 30 Drainage 40 30 45 Right Abdomen 40 30 45 Urine Catheter Amount 350 350 Other: Urine Appearance Clear Clear Clear Uretheral ([place]) Clear Urine Color Dark Yellow Dark Yellow Dark Yellow Uretheral ([place]) Bright Yellow Head Head exam: Present atraumatic, normal inspection and normocephalic Eye Eye exam: Present EOMI Pupils: Present normal accommodation and PERRL ENT ENT exam: Present normal oropharynx Neck Neck exam: Present full ROM and normal inspection; Absent tenderness Respiratory Respiratory exam: Present normal respiratory exam and CTAB; Absent rales, rhonchi or wheezes Cardiovascular Cardiovascular exam: Present normal rate and rhythm, RRR, +S1 and +S2 GI/Abdominal GI/Abdominal exam: Present normal bowel sounds, soft, distended (Mild distention of the lower abdomen) and tenderness (Mild incisional tenderness) Extremities Exam Extremities exam: Present full ROM, normal inspection and neurovascular intact Neurological Exam Neurological exam: Present alert and oriented X3 Psychiatric Psychiatric exam: Present anxious A/P Assessment and plan (1) Perforated gastric ulcer: Status: Acute (2) Acute generalized peritonitis: Status: Acute (3) Primary degenerative dementia: Status: Acute Narrative A/P Narrative: Continue on present therapy 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
[2022-03-11] MEDS ORDERED: POTASSIUM PHOSPHATE 66 MEQ/15 ML VIAL IV ONE (21:24)
[2022-03-11] MEDS: LATANOPROST OPHTH DROPS 2.5ML BOTTLE OU SCH (21:30)
[2022-03-11] MEDS: HALOPERIDOL LACTATE 5 MG/ML VIAL IM SCH (21:35)
[2022-03-11] MEDS: POTASSIUM PHOSPHATE 40 MEQ in DEXTROSE 5% IN WATER 500 ML IV SCH (21:51)
[2022-03-12] MEDS: PIPERACILLIN SODIUM/TAZOBACTAM 2.25 GM in DEXTROSE 5% IN WATER 50 ML IV SCH ×5 (00:43→23:28)
[2022-03-12] MEDS: HYDROmorphone 0.5 MG/0.5 ML SYRINGE IV PRN ×2 (01:40→17:07)
[2022-03-12] MEDS: ACETAMINOPHEN 1,000 MG/100 ML BAG IV SCH ×4 (02:59→21:51)
[2022-03-12] MEDS: 0.9 % SODIUM CHLORIDE 1,000 ML IV SCH ×2 (04:24→17:13)
[2022-03-12 06:31] LABS: Basophils # (Auto) 0.03 K/mcL (0.00-0.30); Basophils % (Auto) 0.3 % (0.0-2.0); Eosinophils # (Auto) 0.21 K/mcL (0.00-0.70); Eosinophils % (Auto) 2.4 % (0.0-7.0); Hematocrit 27.6 % (34.1-44.9); Hemoglobin 8.8 g/dL (11.2-15.7); Lymphocytes # (Auto) 1.04 K/mcL (1.50-4.80); Lymphocytes % (Auto) 11.7 % (15.5-49.0); Mean Cell Volume 96.5 fL (80.0-100.0); Mean Corpuscular HGB Conc 31.9 g/dL (31.0-36.0); Mean Platelet Volume 9.7 fL (7.4-10.4); Monocytes # (Auto) 0.47 K/mcL (0.10-0.90); Monocytes % (Auto) 5.3 % (1.0-12.0); Neutrophils % (Auto) 79.6 % (38.0-78.0); Platelet Count 241 K/mcL (140-440); RBC 2.86 M/mcL (3.59-5.38); Red Cell Distribution Width 14.3 % (11.5-14.5); WBC 8.9 K/mcL (4.5-11.0)
[2022-03-12 06:49] LABS: ALT/SGPT 11 U/L (<40); AST/SGOT 16 U/L (<32); Albumin 2.6 gm/dL (3.2-5.2); Albumin/Globulin Ratio 1.2 (1.0-2.3); Alkaline Phosphatase 123 U/L (39-117); Bilirubin,Direct < 0.2 mg/dL (0-0.3); Bilirubin,Total 0.4 mg/dL (0.1-1.0); Blood Urea Nitrogen 14 mg/dL (8-23); Calcium 8.3 mg/dL (8.6-10.4); Carbon Dioxide 20 mmol/L (22-30); Chloride 114 mmol/L (96-108); Globulin 2.2 gm/dL (2.2-3.7); Glomerular Filtration Rate 86; Glucose 105 mg/dL (70-105); Lactate Dehydrogenase 289 U/L (135-225); Phosphorous 3.3 mg/dL (2.5-4.5); Triglycerides 76 mg/dL (<150); Uric Acid 2.4 mg/dL (2.5-8.0)
[2022-03-12] MEDS: PANTOPRAZOLE 40 MG VIAL IV SCH ×2 (08:06→16:21)
[2022-03-12] MEDS: POTASSIUM PHOSPHATE 40 MEQ in DEXTROSE 5% IN WATER 500 ML IV SCH (11:09)
[2022-03-12] MEDS: MUPIROCIN OINT 2% 22GM NARES SCH ×2 (11:10→20:45)
--- NOTE | 2022-03-12 14:48 | General Surgery Progress Note ---
SUBJECTIVE Subjective Patient information: Note initiated : 03/12/22 at 2:45 pm Service Date, if different from initiated Date: [] Patient: Heather Jasmine 86 y/o F admitted on 03/09/22 for stomach pain. Chief Complaint: [] Principal diagnosis: Perforated viscus Interval history: Patient continues to improve. Has she still has episodes of mental confusion. She has been restrained because of her tendency to pull out her lines. She has good active bowel sounds and there is no abdominal distention. White blood count 8.9, hemoglobin 8.8, hematocrit 27.6, potassium 3.5. Constitutional Vitals: Vital Signs Temp Pulse Resp BP Pulse Ox O2 Del Method O2 Flow Rate 98.5 F 76 20 195/83 97 0 03/12/22 12:00 03/12/22 12:00 03/12/22 12:00 03/12/22 12:00 03/12/22 12:00 03/12/22 12:00 03/09/22 18:38 Period Temp Pulse Resp BP Sys/[place] Pulse Ox O2 Del Method O2 Flow Rate Last 24 Hr 97.7 F-98.5 F 68-81 16-20 143-195/69-94 95-97 Room Air-Room Air Intake and Output 03/12/22 03/12/22 03/12/22 05:59 13:59 21:59 Intake Total 1789.0909 150 Output Total 1345 Balance 444.0909 150 Intake & Output: Intake & Output 03/12/22 03/12/22 03/12/22 05:59 13:59 21:59 Intake Total 1789.0909 150 Output Total 1345 Balance 444.0909 150 Intake: IV 1759.0909 150 Sodium Chloride 0.9% 1,000 ml @ 1000 75 mls/hr IV .[id number] MAX Rx#: [id number] Zosyn 2.25 gm In Dextrose 5% in 50 50 Water 50 ml @ 100 mls/hr IV Q6H [facility] Rx#:[id number] Potassium Phosphate 40 Meq In 509.0909 Dextrose 5% in Water 500 ml @ 63.636 mls/hr IV 0300,1900 MAX Rx#:[id number] Oral 30 Output: Gastric Drainage 300 NG/OG 300 Drainage 70 Right Abdomen 70 Urine Catheter Amount 975 Other: Urine Appearance Clear Urine Color Bright Yellow Urine Odor Normal Head Head exam: Present atraumatic, normal inspection and normocephalic Eye Eye exam: Present EOMI Pupils: Present normal accommodation and PERRL ENT ENT exam: Present normal oropharynx Neck Neck exam: Present full ROM and normal inspection; Absent tenderness Respiratory Respiratory exam: Present normal respiratory exam and CTAB; Absent rales, rhonchi or wheezes Cardiovascular Cardiovascular exam: Present normal rate and rhythm, RRR, +S1 and +S2 GI/Abdominal GI/Abdominal exam: Present normal bowel sounds, soft, distended (Mild distention of the lower abdomen) and tenderness (Mild incisional tenderness) Extremities Exam Extremities exam: Present full ROM, normal inspection and neurovascular intact Neurological Exam Neurological exam: Present alert and oriented X3 Psychiatric Psychiatric exam: Present anxious A/P Assessment and plan (1) Perforated gastric ulcer: Status: Acute (2) Acute generalized peritonitis: Status: Acute (3) Primary degenerative dementia: Status: Acute Narrative A/P Narrative: Discontinue nasogastric tube Clear liquid diet Time Spent With Patient Time: Total time spent is greater than 50% in coordination of care (as documented) at patient's floor/unit and/or counseling patient:
[2022-03-12] MEDS: METOCLOPRAMIDE 10 MG/2 ML VIAL IV SCH ×2 (17:38→23:28)
[2022-03-12] MEDS: LATANOPROST OPHTH DROPS 2.5ML BOTTLE OU SCH (20:45)
[2022-03-12] MEDS: HALOPERIDOL LACTATE 5 MG/ML VIAL IM SCH (20:45)
[2022-03-12] MEDS: diphenhydrAMINE 50 MG/ML VIAL IV PRN (21:52)
[2022-03-13] MEDS: HYDROmorphone 0.5 MG/0.5 ML SYRINGE IV PRN ×2 (02:06→07:55)
[2022-03-13] MEDS: ACETAMINOPHEN 1,000 MG/100 ML BAG IV SCH ×4 (03:41→21:38)
[2022-03-13] MEDS: diphenhydrAMINE 50 MG/ML VIAL IV PRN ×2 (04:47→23:27)
[2022-03-13] MEDS: PIPERACILLIN SODIUM/TAZOBACTAM 2.25 GM in DEXTROSE 5% IN WATER 50 ML IV SCH ×4 (05:22→23:27)
[2022-03-13] MEDS: METOCLOPRAMIDE 10 MG/2 ML VIAL IV SCH ×4 (05:23→23:27)
[2022-03-13] MEDS: PANTOPRAZOLE 40 MG VIAL IV SCH ×2 (07:55→16:53)
[2022-03-13 08:53] LABS: Basophils # (Auto) 0.04 K/mcL (0.00-0.30); Basophils % (Auto) 0.5 % (0.0-2.0); Eosinophils # (Auto) 0.22 K/mcL (0.00-0.70); Eosinophils % (Auto) 2.7 % (0.0-7.0); Hematocrit 29.2 % (34.1-44.9); Hemoglobin 9.9 g/dL (11.2-15.7); Lymphocytes # (Auto) 1.28 K/mcL (1.50-4.80); Lymphocytes % (Auto) 15.7 % (15.5-49.0); Mean Cell Volume 92.1 fL (80.0-100.0); Mean Corpuscular HGB Conc 33.9 g/dL (31.0-36.0); Mean Platelet Volume 9.4 fL (7.4-10.4); Monocytes # (Auto) 0.62 K/mcL (0.10-0.90); Monocytes % (Auto) 7.6 % (1.0-12.0); Neutrophils % (Auto) 72.8 % (38.0-78.0); Platelet Count 296 K/mcL (140-440); RBC 3.17 M/mcL (3.59-5.38); Red Cell Distribution Width 13.8 % (11.5-14.5); WBC 8.2 K/mcL (4.5-11.0)
[2022-03-13] MEDS: 0.9 % SODIUM CHLORIDE 1,000 ML IV SCH ×2 (09:00→09:43)
[2022-03-13 09:22] LABS: ALT/SGPT 15 U/L (<40); AST/SGOT 27 U/L (<32); Albumin 2.6 gm/dL (3.2-5.2); Alkaline Phosphatase 114 U/L (39-117); Bilirubin,Direct < 0.2 mg/dL (0-0.3); Bilirubin,Total 0.5 mg/dL (0.1-1.0); Blood Urea Nitrogen 8 mg/dL (8-23); Calcium 8.4 mg/dL (8.6-10.4); Carbon Dioxide 25 mmol/L (22-30); Chloride 112 mmol/L (96-108); Globulin 2.7 gm/dL (2.2-3.7); Glomerular Filtration Rate 86; Glucose 103 mg/dL (70-105); Lactate Dehydrogenase 293 U/L (135-225); Phosphorous 2.3 mg/dL (2.5-4.5); Triglycerides 84 mg/dL (<150); Uric Acid 1.6 mg/dL (2.5-8.0)
[2022-03-13] MEDS: MUPIROCIN OINT 2% 22GM NARES SCH ×2 (09:42→20:33)
--- NOTE | 2022-03-13 17:38 | General Surgery Progress Note ---
SUBJECTIVE Subjective Patient information: Note initiated : 03/13/22 at 5:35 pm Service Date, if different from initiated Date: [] Patient: Heather Jasmine 86 y/o F admitted on 03/09/22 for stomach pain. Chief Complaint: [] Principal diagnosis: Perforated viscus Interval history: Patient continues to do well. She has minimal abdominal pain. She has tolerated liquids without difficulty. Her drain has only serous fluid and no bilious content. White blood count 8.2, hemoglobin 9.9, hematocrit 29.2, potassium 3.3, BUN 8, creatinine 0.5, phosphorus 2.3 Constitutional Vitals: Vital Signs Temp Pulse Resp BP Pulse Ox O2 Del Method O2 Flow Rate 98.0 F 71 20 149/83 98 0 03/13/22 15:45 03/13/22 15:45 03/13/22 15:45 03/13/22 15:45 03/13/22 15:45 03/13/22 15:45 03/09/22 18:38 Period Temp Pulse Resp BP Sys/[place] Pulse Ox O2 Del Method O2 Flow Rate Last 24 Hr 97.3 F-98.7 F 62-94 16-20 141-162/69-89 94-98 Room Air-Room Air Intake and Output 03/13/22 03/13/22 03/13/22 05:59 13:59 21:59 Intake Total 500 1210 340 Output Total 1875 705 760 Balance -1375 505 -420 Intake & Output: Intake & Output 03/13/22 03/13/22 03/13/22 05:59 13:59 21:59 Intake Total 500 1210 340 Output Total 1875 705 760 Balance -1375 505 -420 Intake: IV 300 1150 100 Sodium Chloride 0.9% 1,000 ml @ 1000 75 mls/hr IV .[id number] MAX Rx#: [id number] Zosyn 2.25 gm In Dextrose 5% in 100 50 Water 50 ml @ 100 mls/hr IV Q6H MAX Rx#:[id number] Oral 200 60 240 Output: Drainage 25 Right Abdomen 25 Drainage 30 10 Right Abdomen 30 10 Urine Catheter Amount 1853 632 097 Other: Meal Breakfast Percent of Meal Consumed 100% Feeding Ability Independent Urine Appearance Clear Clear Uretheral ([place]) Clear Urine Color Yellow Pale Uretheral ([place]) Pale Urine Odor Normal Uretheral ([place]) Normal Neck Neck exam: Present full ROM and normal inspection Respiratory Respiratory exam: Present normal respiratory exam and CTAB Cardiovascular Cardiovascular exam: Present normal rate and rhythm, RRR, +S1 and +S2; Absent JVD GI/Abdominal GI/Abdominal exam: Present normal bowel sounds and soft; Absent distended Extremities Exam Extremities exam: Present full ROM and neurovascular intact Neurological Exam Neurological exam: Present alert Additional comments: Still intermittently disoriented Psychiatric Psychiatric exam: Present anxious and flat affect A/P Assessment and plan (1) Perforated gastric ulcer: Status: Acute (2) Acute generalized peritonitis: Status: Acute (3) Primary degenerative dementia: Status: Acute Plan Patient continues to do well. She will be advanced to a regular diet. We will talk to her daughter and consider discharge in 1 to 2 days. Time Spent With Patient Time: Total time spent is greater than 50% in coordination of care (as documented) at patient's floor/unit and/or counseling patient:
[2022-03-13] MEDS ORDERED: HALOPERIDOL LACTATE 5 MG/ML VIAL IM PRN ×2 (20:06→20:31)
[2022-03-13] MEDS: LATANOPROST OPHTH DROPS 2.5ML BOTTLE OU SCH (20:33)
[2022-03-14] MEDS: ACETAMINOPHEN 1,000 MG/100 ML BAG IV SCH ×4 (03:43→22:00)
[2022-03-14] MEDS: PIPERACILLIN SODIUM/TAZOBACTAM 2.25 GM in DEXTROSE 5% IN WATER 50 ML IV SCH ×4 (05:55→23:56)
[2022-03-14] MEDS: METOCLOPRAMIDE 10 MG/2 ML VIAL IV SCH ×3 (05:55→17:28)
[2022-03-14] MEDS: diphenhydrAMINE 50 MG/ML VIAL IV PRN ×3 (06:34→20:23)
[2022-03-14] MEDS: PANTOPRAZOLE 40 MG VIAL IV SCH ×2 (06:34→16:10)
[2022-03-14] MEDS: MUPIROCIN OINT 2% 22GM NARES SCH ×2 (09:01→20:23)
--- NOTE | 2022-03-14 15:46 | General Surgery Progress Note ---
SUBJECTIVE Subjective Patient information: Note initiated : 03/14/22 at 3:42 pm Service Date, if different from initiated Date: [] Patient: Heather Jasmine 86 y/o F admitted on 03/09/22 for stomach pain. Chief Complaint: [] Principal diagnosis: Perforated viscus Interval history: Patient continues to improve. She did have some episodes of agitation earlier today but that is improved. She is resting quietly without the need for restraints. Her is totally disoriented and needs reorientation on a frequent basis. She is tolerating full liquid diet without difficulty. Her PATSY drain is primarily serous. Constitutional Vitals: Vital Signs Temp Pulse Resp BP Pulse Ox O2 Del Method O2 Flow Rate 99.5 F H 61 16 126/75 95 0 03/14/22 15:26 03/14/22 15:26 03/14/22 15:26 03/14/22 15:26 03/14/22 15:26 03/14/22 11:08 03/09/22 18:38 Period Temp Pulse Resp BP Sys/[place] Pulse Ox O2 Del Method O2 Flow Rate Last 24 Hr 97.2 F-100.0 F 59-72 16-20 106-149/65-83 94-98 Room Air-Room Air Intake and Output 03/14/22 03/14/22 03/14/22 05:59 13:59 21:59 Intake Total 450 300 Output Total 1480 450 50 Balance -1030 -150 -50 Weight 122 lb Patient Weight 03/15/22 05:59 Weight 122 lb Intake & Output: Intake & Output 03/14/22 03/14/22 03/14/22 05:59 13:59 21:59 Intake Total 450 300 Output Total 1480 450 50 Balance -1030 -150 -50 Weight 122 lb Intake: IV 250 200 Zosyn 2.25 gm In Dextrose 5% in 50 100 Water 50 ml @ 100 mls/hr IV Q[facility]H [facility] Rx#:[id number] Oral 200 100 Output: Drainage 30 Right Abdomen 30 Drainage 50 Right Abdomen 50 Urine Catheter Amount 1450 450 Other: Meal Breakfast Percent of Meal Consumed 25% Urine Appearance Clear Clear Uretheral ([place]) Clear Urine Color Yellow Yellow Uretheral ([place]) Pale Urine Odor Uretheral ([place]) Normal Eye Eye exam: Present EOMI and PERRL Pupils: Present normal accommodation ENT ENT exam: Present mucous membranes moist and normal oropharynx Neck Neck exam: Present full ROM; Absent tenderness Respiratory Respiratory exam: Present CTAB; Absent rales, rhonchi or wheezes Cardiovascular Cardiovascular exam: Present normal rate and rhythm, RRR, +S1 and +S2; Absent gallop or JVD GI/Abdominal GI/Abdominal exam: Present normal bowel sounds and soft; Absent distended or hernia Extremities Exam Extremities exam: Present full ROM and neurovascular intact; Absent pedal edema Neurological Exam Neurological exam: Present alert and reflexes normal; Absent altered or motor sensory deficit Psychiatric Psychiatric exam: Present agitated, anxious, depressed and normal mood; Absent flat affect or homicidal ideation Expanded Psychiatric Exam Focused psych exam: Present delusional, flight of ideas, paranoid and restlessness A/P Assessment and plan (1) Perforated gastric ulcer: Status: Acute (2) Primary degenerative dementia: Status: Acute (3) Acute generalized peritonitis: Status: Acute (4) Perforated abdominal viscus: Status: Acute Plan Continue on present therapy consider discharge in 1 to 2 days Time Spent With Patient Time: Total time spent is greater than 50% in coordination of care (as documented) at patient's floor/unit and/or counseling patient:
[2022-03-14] MEDS: LATANOPROST OPHTH DROPS 2.5ML BOTTLE OU SCH (20:23)
[2022-03-15] MEDS: METOCLOPRAMIDE 10 MG/2 ML VIAL IV SCH ×5 (01:00→23:42)
[2022-03-15] MEDS: ACETAMINOPHEN 1,000 MG/100 ML BAG IV SCH ×4 (02:30→21:11)
[2022-03-15] MEDS: diphenhydrAMINE 50 MG/ML VIAL IV PRN ×3 (02:30→19:09)
[2022-03-15] MEDS: PIPERACILLIN SODIUM/TAZOBACTAM 2.25 GM in DEXTROSE 5% IN WATER 50 ML IV SCH ×4 (05:22→23:40)
[2022-03-15] MEDS: HYDROmorphone 0.5 MG/0.5 ML SYRINGE IV PRN ×4 (05:31→21:10)
[2022-03-15] MEDS: MUPIROCIN OINT 2% 22GM NARES SCH ×2 (08:27→21:10)
[2022-03-15] MEDS: PANTOPRAZOLE 40 MG VIAL IV SCH ×2 (08:27→16:09)
--- NOTE | 2022-03-15 15:02 | General Surgery Progress Note ---
SUBJECTIVE Subjective Patient information: Note initiated : 03/15/22 at 3:02 pm Service Date, if different from initiated Date: [] Patient: Heather Jasmine 86 y/o F admitted on 03/09/22 for stomach pain. Chief Complaint: [] Principal diagnosis: Perforated viscus Constitutional Vitals: Vital Signs Temp Pulse Resp BP Pulse Ox O2 Del Method O2 Flow Rate 98.0 F 74 18 138/76 94 0 03/15/22 12:00 03/15/22 12:00 03/15/22 12:00 03/15/22 12:00 03/15/22 12:00 03/15/22 12:00 03/09/22 18:38 Period Temp Pulse Resp BP Sys/[place] Pulse Ox O2 Del Method O2 Flow Rate Last 24 Hr 97.7 F-99.5 F 61-74 16-24 123-142/59-76 94-95 Room Air-Room Air Intake and Output 03/15/22 03/15/22 03/15/22 05:59 13:59 21:59 Intake Total 650 460 Output Total 565 Balance 85 460 Intake & Output: Intake & Output 03/15/22 03/15/22 03/15/22 05:59 13:59 21:59 Intake Total 650 460 Output Total 565 Balance 85 460 Intake: Nourishment/Supplement quantity 140 (ml) IV 250 200 Zosyn 2.25 gm In Dextrose 5% in 50 100 Water 50 ml @ 100 mls/hr IV Q6H [facility] Rx#:[id number] Oral 400 120 Output: Drainage 15 Right Abdomen 15 Urine Catheter Amount 550 Other: Meal Breakfast Percent of Meal Consumed 50% Feeding Ability Independent Nourishment/Supplement name Ensure Urine Appearance Uretheral ([place]) Clear Urine Color Uretheral ([place]) Yellow A/P Time Spent With Patient Time: Total time spent is greater than 50% in coordination of care (as documented) at patient's floor/unit and/or counseling patient:
[2022-03-15 15:38] LABS: Basophils # (Auto) 0.05 K/mcL (0.00-0.30); Basophils % (Auto) 0.6 % (0.0-2.0); Eosinophils # (Auto) 0.68 K/mcL (0.00-0.70); Eosinophils % (Auto) 8.1 % (0.0-7.0); Hematocrit 33.5 % (34.1-44.9); Hemoglobin 11.2 g/dL (11.2-15.7); Lymphocytes % (Auto) 25.1 % (15.5-49.0); Mean Cell Volume 92.5 fL (80.0-100.0); Mean Corpuscular HGB Conc 33.4 g/dL (31.0-36.0); Mean Platelet Volume 8.9 fL (7.4-10.4); Monocytes # (Auto) 0.66 K/mcL (0.10-0.90); Monocytes % (Auto) 7.9 % (1.0-12.0); Platelet Count 328 K/mcL (140-440); RBC 3.62 M/mcL (3.59-5.38); WBC 8.4 K/mcL (4.5-11.0)
[2022-03-15] MEDS: LATANOPROST OPHTH DROPS 2.5ML BOTTLE OU SCH (21:11)
[2022-03-16] MEDS: diphenhydrAMINE 50 MG/ML VIAL IV PRN ×2 (01:39→20:04)
[2022-03-16] MEDS: HYDROmorphone 0.5 MG/0.5 ML SYRINGE IV PRN (01:39)
[2022-03-16] MEDS: LATANOPROST OPHTH DROPS 2.5ML BOTTLE OU SCH ×2 (01:41→20:04)
[2022-03-16] MEDS: ACETAMINOPHEN 1,000 MG/100 ML BAG IV SCH ×4 (04:29→22:31)
[2022-03-16] MEDS: PIPERACILLIN SODIUM/TAZOBACTAM 2.25 GM in DEXTROSE 5% IN WATER 50 ML IV SCH ×4 (05:06→23:01)
[2022-03-16] MEDS: METOCLOPRAMIDE 10 MG/2 ML VIAL IV SCH ×4 (05:08→23:11)
[2022-03-16] MEDS: MUPIROCIN OINT 2% 22GM NARES SCH ×2 (09:12→20:04)
[2022-03-16] MEDS: PANTOPRAZOLE 40 MG VIAL IV SCH ×2 (09:12→16:16)
[2022-03-16 10:54] LABS: POC Calcium, Ionized 1.2 (1.16-1.32); POC Creatinine 1.1 (0.6-1.2)
[2022-03-16] MEDS ORDERED: MAGNESIUM HYDROXIDE 30 ML ORAL.SUSP PO PRN (14:24)
--- NOTE | 2022-03-16 14:34 | General Surgery Progress Note ---
SUBJECTIVE Subjective Patient information: Note initiated : 03/16/22 at 2:30 pm Service Date, if different from initiated Date: [] Patient: Heather Jasmine 86 y/o F admitted on 03/09/22 for stomach pain. Chief Complaint: [] Principal diagnosis: Perforated viscus Interval history: Patient is clinically stable. She is still has problems with mentation. According to family she is to be transferred to [facility] a bed is available. Patient complains of inability to have a bowel movement. Vital signs are otherwise stable. Constitutional Vitals: Vital Signs Temp Pulse Resp BP Pulse Ox O2 Del Method O2 Flow Rate 98.1 F 90 16 157/85 94 0 03/16/22 12:10 03/16/22 12:10 03/16/22 12:10 03/16/22 12:10 03/16/22 12:10 03/16/22 12:10 03/09/22 18:38 Period Temp Pulse Resp BP Sys/[place] Pulse Ox O2 Del Method O2 Flow Rate Last 24 Hr 97.7 F-99.1 F 68-106 16-18 124-157/67-85 92-96 Room Air-Room Air Intake and Output 03/16/22 03/16/22 03/16/22 05:59 13:59 21:59 Intake Total 500 600 Output Total 1005 Balance -505 600 Intake & Output: Intake & Output 03/16/22 03/16/22 03/16/22 05:59 13:59 21:59 Intake Total 500 600 Output Total 1005 Balance -505 600 Intake: Nourishment/Supplement quantity 360 (ml) IV 300 Zosyn 2.25 gm In Dextrose 5% in 100 Water 50 ml @ 100 mls/hr IV Q6H COUNTS INCLUDE 234 BEDS AT [facility] Rx#:[id number] Oral 200 240 Output: Drainage 5 Right Abdomen 5 Void Amount 1000 Other: Meal Breakfast Percent of Meal Consumed 100% Feeding Ability Independent Nourishment/Supplement name Ensure Urine Appearance Clear Urine Color Yellow Neck Neck exam: Present full ROM and normal inspection Respiratory Respiratory exam: Present normal respiratory exam and CTAB Cardiovascular Cardiovascular exam: Present normal rate and rhythm, RRR, +S1 and +S2; Absent JVD GI/Abdominal GI/Abdominal exam: Present normal bowel sounds and soft; Absent distended, guarding or tenderness Extremities Exam Extremities exam: Present full ROM, normal capillary refill, normal inspection and neurovascular intact Neurological Exam Neurological exam: Present alert, motor sensory deficit and normal gait Additional comments: Oriented to person Psychiatric Psychiatric exam: Present normal affect and normal mood A/P Assessment and plan (1) Perforated gastric ulcer: Status: Acute (2) Acute generalized peritonitis: Status: Acute (3) Primary degenerative dementia: Status: Acute Plan Milk of magnesia x2 doses Discontinue Ol[place] catheter Patient is ready for discharge when a bed is available. Time Spent With Patient Time: Total time spent is greater than 50% in coordination of care (as documented) at patient's floor/unit and/or counseling patient:
[2022-03-16] MEDS: QUEtiapine 25 MG TABLET PO SCH ×2 (16:43→20:04)
[2022-03-17] MEDS: diphenhydrAMINE 50 MG/ML VIAL IV PRN (02:55)
[2022-03-17] MEDS: ACETAMINOPHEN 1,000 MG/100 ML BAG IV SCH ×3 (02:59→16:53)
[2022-03-17] MEDS: PIPERACILLIN SODIUM/TAZOBACTAM 2.25 GM in DEXTROSE 5% IN WATER 50 ML IV SCH ×2 (05:31→12:05)
[2022-03-17] MEDS: METOCLOPRAMIDE 10 MG/2 ML VIAL IV SCH ×2 (05:34→12:05)
[2022-03-17] MEDS: QUEtiapine 25 MG TABLET PO SCH (07:59)
[2022-03-17] MEDS: PANTOPRAZOLE 40 MG VIAL IV SCH (07:59)
[2022-03-17] MEDS: MUPIROCIN OINT 2% 22GM NARES SCH (08:00)
--- NOTE | 2022-03-17 12:24 | Discharge Summary ---
Discharge Provider Provider IMPORTANT FOLLOW-UP INFORMATION FOR PCP: Patient information: Note initiated : 03/17/22 at 12:17 pm Service Date, if different from initiated Date: [] Patient: Heather Jasmine 86 y/o F admitted on 03/09/22 for stomach pain. Chief Complaint: [] Date of admission: 03/09/22 14:20 Discharge date: 03/17/22 Admitting clinician: Micky Johnson Attending physician on admission: Micky Johnson Consults: 03/09/22 Consult to Physician [CONS] Stat Comment: Consulting Provider: Micky Johnson Reason For Exam: Physician to Consult Attending physician on discharge: Micky Johnson Discharging clinician: Micky Jonhson COURSE Hospital Course Hospital course: 86-year-old female admitted on 09 March 2022 with perforated viscus. She was explored and was found to have a perforated antral ulcer with moderate peritonitis. She had peritoneal washout with closure of gastric ulcer and Pete patch placement. Patient also had significant dementia which caused some intermediate problems because of her confusion. She has improved daily and is now tolerating diet without difficulty. She has had bowel movements. She is afebrile and her white blood count has returned to normal. Patient is clinically stable for discharge and transfer to halfway facility. Discharge diagnosis: Perforated gastric ulcer due to NSAIDs Secondary discharge diagnosis: Generalized peritonitis Primary degenerative dementia Reason for admission: Perforated gastric ulcer Procedures: Laparotomy with peritoneal washout and closure of gastric ulcer with Pete patch Pertinent studies/significant findings: CT of abdomen and pelvis with contrast Complications: None Time Spent with Patient Time attestation: Total time spent providing and/or coordinating discharge services: Time spent: Less than 30 minutes Physical Examination Vital Signs Vital signs: Temp Pulse Resp BP Pulse Ox O2 Del Method O2 Flow Rate 97.6 F 73 20 156/83 96 0 03/17/22 12:00 03/17/22 12:00 03/17/22 12:00 03/17/22 12:00 03/17/22 12:00 03/17/22 12:00 03/09/22 18:38 General physical appearance General physical exam: no distress, no pain, cachectic and chronically ill Eyes Eye exam: PERRL and normal ocular movement ENT ENT exam: normal mucosa and decreased hearing Head Head exam IM: Present atraumatic, normal inspection and normocephalic Neck Neck exam: no masses, no bruits, trachea midline, no lymphadenopathy and no venous distension Cardiovascular Cardiovascular exam IM: Present normal rate and rhythm, RRR, +S1 and +S2; Absent JVD Respiratory Respiratory exam: normal expansion, normal respiratory effort and clear to auscultation Abdomen Abdomen: Present soft, non tender and bowel sounds (Good active bowel sounds; PATSY drain removed; incision is healing nicely) Integumentary Integumentary: Present no rash, no growths and no abnormal pigmentation Neurologic Neurologic: Present normal coordination, normal sensation, disoriented, confused and memory loss Musculoskeletal Musculoskeletal: Present normal gait and normal posture Psychiatric Psychiatric: Present oriented to person; Absent memory intact Discharge Plan Patient/Caregiver Discharge Instructions Activity: increase activity as tolerated Diet: Regular Diet Prescriptions: Continued citalopram 10 mg Tablet 10 mg PO QDAY hydrocodone-acetaminophen 5-325 mg Tablet 1 tab PO Q6H PRN (Reason: Pain) latanoprost 0.005 % Drops 1 drp OPHTHALMIC (EYE) QPM Rx Instructions: 1 drop in both eyes at bedtime rosuvastatin 40 mg Tablet See Rx Instructions .ROUTE .COMPLEX Rx Instructions: 40 mg orally every other day potassium citrate 15 mEq Tablet Extended Release 15 meq PO BID alendronate 70 mg Tablet 70 mg PO WEEKLY Discontinued celecoxib 200 mg Capsule 200 mg PO QDAY Follow Up Plan Follow up with: Micky Johnson MD [Physician] - (Contact office for appointment in 10 days) Patient Disposition: Home, Self-Care Prognosis: Fair Rehab Potential: Good I certify that the patient requires SNF services: Yes Overall status at discharge: patient is progressing back to baseline Discharge Orders: Discharge Order (Routine); Ordered 03/17/22 Ordered By: Micky Johnson Pending Pending Pending: Resuscitation Status Resuscitate (Full Code) Diet Regular Diet Start ThuMar 14 1258 Diphenhydramine HCl (Diphenhydramine 50 Mg/Ml Vial) 50 mg IV Q6HP PRN PRN Reason: Agitation Last Admin: 03/17/22 02:55 Dose: 50 mg Documented By: Admin: 03/16/22 20:04 Dose: 50 mg Documented By: Admin: 03/16/22 01:39 Dose: 50 mg Documented By: Admin: 03/15/22 19:09 Dose: 50 mg Documented By: Admin: 03/15/22 12:41 Dose: 50 mg Documented By: Admin: 03/15/22 02:30 Dose: 50 mg Documented By: Admin: 03/14/22 20:23 Dose: 50 mg Documented By: Admin: 03/14/22 14:13 Dose: 50 mg Documented By: Admin: 03/14/22 06:34 Dose: 50 mg Documented By: Admin: 03/13/22 23:27 Dose: 50 mg Documented By: Admin: 03/13/22 04:47 Dose: 50 mg Documented By: Admin: 03/12/22 21:52 Dose: 50 mg Documented By: Admin: 03/10/22 19:30 Dose: 50 mg Documented By: CIRO Hydromorphone HCl (Hydromorphone 0.5 Mg/0.5 Ml Syringe) 0.5 mg IV Q4HP PRN; Protocol PRN Reason: Per Pain Protocol Last Admin: 03/16/22 01:39 Dose: 0.5 mg Documented By: Admin: 03/15/22 21:10 Dose: 0.5 mg Documented By: Admin: 03/15/22 15:33 Dose: 0.5 mg Documented By: Admin: 03/15/22 11:30 Dose: 0.5 mg Documented By: Admin: 03/15/22 05:31 Dose: 0.5 mg Documented By: ASIM Piperacillin Sod/Tazobactam (Sod 2.25 gm/ Dextrose) 50 mls @ 100 mls/hr IV Q6H [facility] Admin: 03/17/22 12:05 Dose: 100 mls/hr Documented By: Infusion: 03/17/22 06:15 Dose: 0 mls/hr Documented By: Admin: 03/17/22 05:31 Dose: 100 mls/hr Documented By: Infusion: 03/17/22 01:06 Dose: 0 mls/hr Documented By: Admin: 03/16/22 23:01 Dose: 100 mls/hr Documented By: Infusion: 03/16/22 19:41 Dose: 0 mls/hr Documented By: Admin: 03/16/22 19:08 Dose: 100 mls/hr Documented By: Infusion: 03/16/22 15:29 Dose: 0 mls/hr Documented By: Admin: 03/16/22 13:10 Dose: 100 mls/hr Documented By: Infusion: 03/16/22 05:43 Dose: 0 mls/hr Documented By: Admin: 03/16/22 05:06 Dose: 100 mls/hr Documented By: Infusion: 03/16/22 00:11 Dose: 0 mls/hr Documented By: Admin: 03/15/22 23:40 Dose: 100 mls/hr Documented By: Infusion: 03/15/22 17:20 Dose: 0 mls/hr Documented By: Admin: 03/15/22 16:48 Dose: 100 mls/hr Documented By: Infusion: 03/15/22 12:12 Dose: 0 mls/hr Documented By: Admin: 03/15/22 11:29 Dose: 100 mls/hr Documented By: Infusion: 03/15/22 06:00 Dose: 0 mls/hr Documented By: Admin: 03/15/22 05:22 Dose: 100 mls/hr Documented By: Infusion: 03/15/22 00:47 Dose: 0 mls/hr Documented By: Admin: 03/14/22 23:56 Dose: 100 mls/hr Documented By: Infusion: 03/14/22 20:23 Dose: 0 mls/hr Documented By: Admin: 03/14/22 17:28 Dose: 100 mls/hr Documented By: Infusion: 03/14/22 12:47 Dose: 0 mls/hr Documented By: Admin: 03/14/22 12:17 Dose: 100 mls/hr Documented By: Infusion: 03/14/22 06:25 Dose: 0 mls/hr Documented By: Admin: 03/14/22 05:55 Dose: 100 mls/hr Documented By: Infusion: 03/13/22 23:58 Dose: 0 mls/hr Documented By: Admin: 03/13/22 23:27 Dose: 100 mls/hr Documented By: Infusion: 03/13/22 18:04 Dose: 0 mls/hr Documented By: Admin: 03/13/22 17:34 Dose: 100 mls/hr Documented By: Infusion: 03/13/22 12:05 Dose: 0 mls/hr Documented By: Admin: 03/13/22 11:35 Dose: 100 mls/hr Documented By: Infusion: 03/13/22 05:55 Dose: 0 mls/hr Documented By: Admin: 03/13/22 05:22 Dose: 100 mls/hr Documented By: Infusion: 03/13/22 00:00 Dose: 0 mls/hr Documented By: Admin: 03/12/22 23:28 Dose: 100 mls/hr Documented By: Infusion: 03/12/22 18:05 Dose: 0 mls/hr Documented By: Admin: 03/12/22 17:35 Dose: 100 mls/hr Documented By: Infusion: 03/12/22 12:23 Dose: 100 mls/hr Documented By: Admin: 03/12/22 11:53 Dose: 100 mls/hr Documented By: Infusion: 03/12/22 06:05 Dose: 0 mls/hr Documented By: Admin: 03/12/22 05:34 Dose: 100 mls/hr Documented By: Infusion: 03/12/22 01:15 Dose: 0 mls/hr Documented By: Admin: 03/12/22 00:43 Dose: 100 mls/hr Documented By: Infusion: 03/11/22 18:15 Dose: 0 mls/hr Documented By: Admin: 03/11/22 17:44 Dose: 100 mls/hr Documented By: Infusion: 03/11/22 13:15 Dose: 0 mls/hr Documented By: Admin: 03/11/22 12:31 Dose: 100 mls/hr Documented By: Infusion: 03/11/22 06:15 Dose: 0 mls/hr Documented By: Admin: 03/11/22 05:41 Dose: 100 mls/hr Documented By: Infusion: 03/11/22 00:58 Dose: 0 mls/hr Documented By: Admin: 03/11/22 00:19 Dose: 100 mls/hr Documented By: Infusion: 03/10/22 18:26 Dose: 0 mls/hr Documented By: Admin: 03/10/22 17:27 Dose: 100 mls/hr Documented By: Infusion: 03/10/22 13:00 Dose: 0 mls/hr Documented By: Admin: 03/10/22 12:12 Dose: 100 mls/hr Documented By: Infusion: 03/10/22 06:33 Dose: 0 mls/hr Documented By: Admin: 03/10/22 05:56 Dose: 100 mls/hr Documented By: Infusion: 03/10/22 01:35 Dose: 0 mls/hr Documented By: Admin: 03/10/22 01:00 Dose: 100 mls/hr Documented By: Infusion: 03/09/22 20:59 Dose: 0 mls/hr Documented By: Admin: 03/09/22 20:08 Dose: 100 mls/hr Documented By: CIRO Acetaminophen (Ofirmev) 1,000 mg in 100 mls @ 200 mls/hr IV Q6H MAX; Protocol Last Admin: 03/17/22 11:01 Dose: 200 mls/hr Documented By: Infusion: 03/17/22 03:57 Dose: 0 mls/hr Documented By: Admin: 03/17/22 02:59 Dose: 200 mls/hr Documented By: Infusion: 03/16/22 23:01 Dose: 0 mls/hr Documented By: Admin: 03/16/22 22:31 Dose: 200 mls/hr Documented By: Infusion: 03/16/22 16:44 Dose: 0 mls/hr Documented By: Admin: 03/16/22 16:16 Dose: 200 mls/hr Documented By: Infusion: 03/16/22 10:05 Dose: 0 mls/hr Documented By: Admin: 03/16/22 09:10 Dose: 200 mls/hr Documented By: Infusion: 03/16/22 05:06 Dose: 0 mls/hr Documented By: Admin: 03/16/22 04:29 Dose: 200 mls/hr Documented By: Infusion: 03/15/22 22:03 Dose: 0 mls/hr Documented By: Admin: 03/15/22 21:11 Dose: 200 mls/hr Documented By: Infusion: 03/15/22 16:48 Dose: 0 mls/hr Documented By: Admin: 03/15/22 16:09 Dose: 200 mls/hr Documented By: Infusion: 03/15/22 10:30 Dose: 0 mls/hr Documented By: Admin: 03/15/22 09:58 Dose: 200 mls/hr Documented By: Infusion: 03/15/22 03:14 Dose: 0 mls/hr Documented By: Admin: 03/15/22 02:30 Dose: 200 mls/hr Documented By: Infusion: 03/14/22 22:30 Dose: 0 mls/hr Documented By: Admin: 03/14/22 22:00 Dose: 200 mls/hr Documented By: Infusion: 03/14/22 15:58 Dose: 0 mls/hr Documented By: Admin: 03/14/22 15:28 Dose: 200 mls/hr Documented By: Infusion: 03/14/22 09:31 Dose: 0 mls/hr Documented By: Admin: 03/14/22 09:01 Dose: 200 mls/hr Documented By: Infusion: 03/14/22 04:15 Dose: 0 mls/hr Documented By: Admin: 03/14/22 03:43 Dose: 200 mls/hr Documented By: Infusion: 03/13/22 22:10 Dose: 0 mls/hr Documented By: Admin: 03/13/22 21:38 Dose: 200 mls/hr Documented By: Infusion: 03/13/22 17:00 Dose: 0 mls/hr Documented By: Admin: 03/13/22 16:09 Dose: 200 mls/hr Documented By: Infusion: 03/13/22 10:12 Dose: 0 mls/hr Documented By: Admin: 03/13/22 09:42 Dose: 200 mls/hr Documented By: Infusion: 03/13/22 04:15 Dose: 0 mls/hr Documented By: Admin: 03/13/22 03:41 Dose: 200 mls/hr Documented By: Infusion: 03/12/22 22:25 Dose: 0 mls/hr Documented By: Admin: 03/12/22 21:51 Dose: 200 mls/hr Documented By: Infusion: 03/12/22 16:50 Dose: 0 mls/hr Documented By: Admin: 03/12/22 16:19 Dose: 200 mls/hr Documented By: Infusion: 03/12/22 10:35 Dose: 0 mls/hr Documented By: Admin: 03/12/22 10:05 Dose: 200 mls/hr Documented By: Infusion: 03/12/22 03:30 Dose: 0 mls/hr Documented By: Admin: 03/12/22 02:59 Dose: 200 mls/hr Documented By: Infusion: 03/11/22 22:00 Dose: 0 mls/hr Documented By: Admin: 03/11/22 21:26 Dose: 200 mls/hr Documented By: Infusion: 03/11/22 17:43 Dose: 0 mls/hr Documented By: Admin: 03/11/22 17:00 Dose: 200 mls/hr Documented By: Infusion: 03/11/22 12:32 Dose: 0 mls/hr Documented By: Admin: 03/11/22 11:37 Dose: 200 mls/hr Documented By: AMEYA Latanoprost (Latanoprost Ophth Drops 2.5ml Bottle) 1 gtt OU HS MAX Last Admin: 03/16/22 20:04 Dose: 1 drop Documented By: Admin: 03/16/22 01:41 Dose: 1 drop Documented By: Admin: 03/15/22 21:11 Dose: Not Given Documented By: Admin: 03/14/22 20:23 Dose: 1 drop Documented By: Admin: 03/13/22 20:33 Dose: 1 drop Documented By: Admin: 03/12/22 20:45 Dose: 1 drop Documented By: Admin: 03/11/22 21:30 Dose: 1 drop Documented By: Admin: 03/10/22 19:30 Dose: 1 drop Documented By: CIRO Metoclopramide HCl (Metoclopramide 10 Mg/2 Ml Vial) 10 mg IV Q6 [facility] Admin: 03/17/22 12:05 Dose: 10 mg Documented By: Admin: 03/17/22 05:34 Dose: 10 mg Documented By: Admin: 03/16/22 23:11 Dose: 10 mg Documented By: Admin: 03/16/22 19:08 Dose: 10 mg Documented By: Admin: 03/16/22 13:10 Dose: 10 mg Documented By: Admin: 03/16/22 05:08 Dose: 10 mg Documented By: Admin: 03/15/22 23:42 Dose: 10 mg Documented By: Admin: 03/15/22 16:48 Dose: 10 mg Documented By: Admin: 03/15/22 11:30 Dose: 10 mg Documented By: Admin: 03/15/22 05:22 Dose: 10 mg Documented By: Admin: 03/15/22 01:00 Dose: 10 mg Documented By: Admin: 03/14/22 17:28 Dose: 10 mg Documented By: Admin: 03/14/22 12:17 Dose: 10 mg Documented By: Admin: 03/14/22 05:55 Dose: 10 mg Documented By: Admin: 03/13/22 23:27 Dose: 10 mg Documented By: Admin: 03/13/22 17:35 Dose: 10 mg Documented By: Admin: 03/13/22 11:35 Dose: 10 mg Documented By: Admin: 03/13/22 05:23 Dose: 10 mg Documented By: Admin: 03/12/22 23:28 Dose: 10 mg Documented By: Admin: 03/12/22 17:38 Dose: 10 mg Documented By: KENRICK Mupirocin (Mupirocin Oint 2% 22gm) 1 dose NARES BID [facility] Admin: 03/17/22 08:00 Dose: 1 dose Documented By: Admin: 03/16/22 20:04 Dose: 1 dose Documented By: Admin: 03/16/22 09:12 Dose: 1 dose Documented By: Admin: 03/15/22 21:10 Dose: 1 dose Documented By: Admin: 03/15/22 08:27 Dose: 1 dose Documented By: Admin: 03/14/22 20:23 Dose: 1 dose Documented By: Admin: 03/14/22 09:01 Dose: 1 dose Documented By: Admin: 03/13/22 20:33 Dose: 1 dose Documented By: Admin: 03/13/22 09:42 Dose: 1 dose Documented By: Admin: 03/12/22 20:45 Dose: 1 dose Documented By: Admin: 03/12/22 11:10 Dose: 1 dose Documented By: Admin: 03/11/22 21:30 Dose: 1 dose Documented By: Admin: 03/11/22 08:28 Dose: 1 dose Documented By: Admin: 03/10/22 19:30 Dose: 1 dose Documented By: Admin: 03/10/22 11:53 Dose: 1 dose Documented By: Admin: 03/09/22 22:27 Dose: Not Given Documented By: CIRO Pantoprazole Sodium (Pantoprazole 40 Mg Vial) 40 mg IV BIDAC [facility] Admin: 03/17/22 07:59 Dose: 40 mg Documented By: Admin: 03/16/22 16:16 Dose: 40 mg Documented By: Admin: 03/16/22 09:12 Dose: 40 mg Documented By: Admin: 03/15/22 16:09 Dose: 40 mg Documented By: Admin: 03/15/22 08:27 Dose: 40 mg Documented By: Admin: 03/14/22 16:10 Dose: 40 mg Documented By: Admin: 03/14/22 06:34 Dose: 40 mg Documented By: Admin: 03/13/22 16:53 Dose: 40 mg Documented By: Admin: 03/13/22 07:55 Dose: 40 mg Documented By: Admin: 03/12/22 16:21 Dose: 40 mg Documented By: Admin: 03/12/22 08:06 Dose: 40 mg Documented By: Admin: 03/11/22 16:59 Dose: 40 mg Documented By: Admin: 03/11/22 07:40 Dose: 40 mg Documented By: Admin: 03/10/22 17:27 Dose: 40 mg Documented By: Admin: 03/10/22 08:02 Dose: 40 mg Documented By: Admin: 03/09/22 16:47 Dose: Not Given Documented By: Admin: 03/09/22 13:05 Dose: 40 mg Documented By: CAMDEN Quetiapine Fumarate (Quetiapine 25 Mg Tablet) 25 mg PO BID MAX [facility] Admin: 03/17/22 07:59 Dose: 25 mg Documented By: Admin: 03/16/22 20:04 Dose: 25 mg Documented By: Admin: 03/16/22 16:43 Dose: 25 mg Documented By: GRUPO Shift Summary 03/17/22 04:33 Shift Summary by Mary Coyne Primary Diagnosis: Pneumoperitoneum Registration Status: IP Pertinent Medical Hx/Issue: undiagnosed dementia, anxiety; hx of multiple falls, chronic joint pain. Surgery: 03/09-Exploratory laparotomy with Pete patch closure for perforated gastric ulcer Interventions: IVF; PRN pain meds; RACQUEL pump; Q2 hr repositioning; bed alarm with camera surveillance; midline abd incision dressing dry and intact; RLQ PATSY drain Vital Signs with Trends: VSS on RA Neuro: A&Ox1-2 Activity status: SBA w/FWW and gait belt Diet: Regular Labs/Diagnostics: Meds: scheduled OFIRMEV, Zosyn, Benadryl x2 Void/BM: BSC w/SBA Lines/Tubes: 24 R FA - SL recommendations/questions: Patient still not sleeping through out the night - can we increase HS Seroquel? Expected date of discharge: TBD Discharge Plan (needs, disposition, etc): SNF referral to [facility]. Pt currently lives at [facility] with her . Patient slept in 1.5 hour increments. Was up almost every 2 hours using the BSC. Still confused. Bed alarm on. Removed IV early on in shift. Uses call ramirez inappropriately. Initialized on 03/17/22 04:33 - END OF NOTE
[2022-03-17] MEDS ORDERED: diphenhydrAMINE 25 MG CAPSULE PO PRN (12:28)
--- NOTE | 2022-03-19 14:57 | Operative Note ---
DATE OF OPERATION: 03/09/2022 DATE OF PROCEDURE: 03/09/2022 PREOPERATIVE DIAGNOSIS: Perforated viscus with peritonitis. POSTOPERATIVE DIAGNOSIS: Perforated gastric ulcer with peritonitis. PROCEDURE: Exploratory laparotomy with peritoneal washout and Pete patch closure of perforated gastric ulcer. SURGEON: Micky Johnson M.D. FINDINGS: Perforation of the distal antrum along the lesser curvature with a large volume of gastroduodenal contents and peritonitis. DESCRIPTION OF PROCEDURE: Under general anesthesia, the patient's abdomen was prepped and draped in a sterile field. Timeout procedure was carried out as per protocol. Upper midline incision was made. Upon entering the abdomen, a large volume of gastric and bilious contents were encountered. The peritoneal cavity was irrigated with a large volume of irrigating solution. Once this was relatively clear, inspection of the stomach revealed a perforation along the lesser curvature in the antrum in the prepyloric area. No other pathology was noted. The perforated ulcer was closed with four sutures of 2-0 silk. These were left intact and a patch was made from the omentum and this was anchored in place using the previously-placed suture. The edges of the omentum were then further anchored using interrupted 3-0 silk. This appeared to give a good closure. A #10 Remi drain was placed in the subhepatic space over the ulcer patch. Inspection of the pelvis and subphrenic space and perihepatic space did not reveal any other gastric or duodenal contents. Sponge, needle, instrument, and blade counts were verified as correct. The fascia was closed with running #1 Prolene. Subcutaneous tissue was irrigated with saline and then closed with 2-0 Monocryl. Skin was closed with pablo. The drain was secured with 2-0 nylon suture. Tegaderm dressing was placed. The patient tolerated the procedure well. She was awakened and taken to the postanesthetic care unit in satisfactory condition. LCS:regine Job ID: [id number] Doc ID: [id number] Micky Johnson M.D.
== END 2022-03-17 14:00 | disposition home or self-care (01) | DRG 326 ==
LOC: ED 10:29 → MEDSUR 14:20
PROVIDERS: ADMIT Family Medicine Adult Medicine; ATTEND Family Medicine Adult Medicine